=== PATIENT | male | born 1930 | race Caucasian/White ===

== ENCOUNTER → 2018-04-07 | Outpatient (CLI) | payer MEDICARE, OTHER ==
[~2018-04-07] MED LIST: ALLO300; ASPI81CH PO; ASPI81EC; CIPR500 PO; ENOXAPARIN; Flonase 0.05% N16 GM; HYDCHL12.5 PO; L-LYSINE; LAVAP17G PO; LEVFLO500 PO; MULTI VITAMIN1 EACH PO; MULVITMINF; NAPR500 PO; OMEGA-3; OXYACE5T PO; OXYB5ER PO; OXYGEN; PHENA200; Pyridium200 MG PO; RXOXYACE PO; TERA5 PO; TRIM100 PO; VERA120ERB; WARF3 PO; WARF5 PO; WARF7.5 PO; [UNRECOGNIZED DRUG - OTHER]
== END | disposition home or self-care (01) ==
LOC: LAB EV 18:31 → LAB SHORT 18:31
DX: R30.0 Dysuria (principal)
CPT/HCPCS: 87086

== ENCOUNTER → 2018-06-15 | Outpatient (CLI) | payer MEDICARE, OTHER | END | disposition home or self-care (01) | LOC: PLD 13:42 → LAB SHORT 13:42 | DX: D48.5 Neoplasm of uncertain behavior of skin (principal) | CPT/HCPCS: 88305 ==

== ENCOUNTER → 2018-09-21 | Outpatient (CLI) | payer MEDICARE, OTHER ==
[2018-09-21 11:21] LABS: Bilirubin, Urine Neg (Neg); Blood, Urine 5+ (Neg); Glucose Qualitative, Urine Neg (Neg); Ketones, Urine Neg (Neg); Leukocyte Esterase, Urine 1+ (Neg); Nitrite, Urine Neg (Neg); Protein, Urine 2+ (Neg); Urobilinogen, Urine NORM (Normal)
[2018-09-21 11:53] LABS: Appearance, Urine Hazy (Clear); Color, Urine Yellow (P-Yellow)
[2018-09-21 11:57] LABS: Red Blood Cells, Urine 25-50 /hpf (0-2)
[2018-09-21 11:58] LABS: Bacteria Few /hpf; Squamous Epithelial Cells Few /hpf (Few)
== END | disposition home or self-care (01) ==
LOC: LAB SHORT 09:45 → LAB 09:45
PROVIDERS: Internal Medicine
DX: N39.0 Urinary tract infection, site not specified (principal)
CPT/HCPCS: 81001; 87086

== ENCOUNTER → 2019-01-01 | Outpatient (CLI) | payer MEDICARE, OTHER | END | disposition home or self-care (01) | LOC: LAB SHORT 13:52 → PLD 13:52 | DX: L57.0 Actinic keratosis (principal) | CPT/HCPCS: 88305 ==

== ENCOUNTER → 2019-03-22 | Outpatient (CLI) | payer MEDICARE, OTHER ==
[~2019-03-22] MED LIST changes: +ACET325 PO; +Anti-Diarrheal2 MG PO; +BISA10S PR; +CIPR250 PO; +DONEPEZIL HCL10 MG PO; +GAVILAX17 GM PO; +Milk Of Ma400 MG/5 M PO; +OLANZAPINE5 MG PO; +TUMS500 MG PO; +ZYRTEC10 M1 PO
[2019-03-23 12:35] LABS: Bilirubin, Urine Neg (Neg); Blood, Urine 2+ (Neg); Glucose Qualitative, Urine Neg (Neg); Ketones, Urine Neg (Neg); Leukocyte Esterase, Urine Neg (Neg); Nitrite, Urine Neg (Neg); Protein, Urine 2+ (Neg); Specific Gravity, Urine 1.015 (1.003-1.022); Urobilinogen, Urine NORM (Normal)
[2019-03-23 12:53] LABS: Color, Urine Yellow (P-Yellow)
[2019-03-23 12:54] LABS: Appearance, Urine Clear (Clear)
[2019-03-23 12:55] LABS: Bacteria Few /hpf; Squamous Epithelial Cells Rare /hpf (Few)
== END ==
LOC: LAB SHORT 17:10 → LAB 17:10
PROVIDERS: Internal Medicine
DX: N39.0 Urinary tract infection, site not specified (principal)
CPT/HCPCS: 81001

== ENCOUNTER → 2019-06-15 | Outpatient (CLI) | payer MEDICARE, OTHER ==
[2019-06-15 15:03] LABS: Bilirubin, Urine Neg (Neg); Blood, Urine 5+ (Neg); Glucose Qualitative, Urine Neg (Neg); Ketones, Urine Neg (Neg); Leukocyte Esterase, Urine 1+ (Neg); Nitrite, Urine Neg (Neg); Protein, Urine 2+ (Neg); Specific Gravity, Urine 1.015 (1.003-1.022); Urobilinogen, Urine NORM (Normal)
[2019-06-15 15:11] LABS: Appearance, Urine Clear (Clear); Color, Urine Yellow (P-Yellow)
[2019-06-15 15:12] LABS: Bacteria Many /hpf; Red Blood Cells, Urine 25-50 /hpf (0-2); Squamous Epithelial Cells Rare /hpf (Few)
== END ==
LOC: LAB SHORT 14:56 → LAB 14:56
PROVIDERS: Internal Medicine
DX: N39.0 Urinary tract infection, site not specified (principal)
CPT/HCPCS: 81001; 87077; 87086; 87186

== ENCOUNTER 2019-06-18 08:45 | Emergency (ER) | payer MEDICARE, OTHER ==
[~2019-06-18] VITALS: Ht 175.3 cm; Wt 79.4 kg
[~2019-06-18 08:45] MED LIST changes: -ACET325 PO; -Anti-Diarrheal2 MG PO; -BISA10S PR; -CIPR250 PO; -DONEPEZIL HCL10 MG PO; -GAVILAX17 GM PO; -Milk Of Ma400 MG/5 M PO; -OLANZAPINE5 MG PO; -TUMS500 MG PO; -ZYRTEC10 M1 PO
[2019-06-18] MEDS ORDERED: ZYRTEC10 M1 PO (09:19)
[2019-06-18] MEDS ORDERED: CIPR250 PO (09:20)
[2019-06-18] MEDS ORDERED: DONEPEZIL HCL10 MG PO (09:20)
[2019-06-18] MEDS ORDERED: Flonase 0.05% N16 GM (09:21)
[2019-06-18] MEDS ORDERED: OLANZAPINE5 MG PO (09:21)
[2019-06-18] MEDS ORDERED: ACET325 PO (09:22)
[2019-06-18] MEDS ORDERED: TUMS500 MG PO (09:22)
[2019-06-18] MEDS ORDERED: BISA10S PR (09:22)
[2019-06-18] MEDS ORDERED: Milk Of Ma400 MG/5 M PO (09:23)
[2019-06-18] MEDS ORDERED: Anti-Diarrheal2 MG PO (09:23)
[2019-06-18] MEDS ORDERED: GAVILAX17 GM PO (09:24)
== END 2019-06-18 10:20 | disposition home or self-care (01) ==
LOC: ER 08:45
DX: N39.0 Urinary tract infection, site not specified (principal); F03.90 Unspecified dementia, unspecified severity, without behavioral disturbance, psychotic disturbance, mood disturbance, and anxiety; R41.82 Altered mental status, unspecified; I10 Essential (primary) hypertension
CPT/HCPCS: 99284

== ENCOUNTER → 2019-06-27 | Outpatient (CLI) | payer MEDICARE, OTHER ==
[~2019-06-27] MED LIST changes: +ACET325 PO; +Anti-Diarrheal2 MG PO; +BISA10S PR; +CIPR250 PO; +DONEPEZIL HCL10 MG PO; +GAVILAX17 GM PO; +Milk Of Ma400 MG/5 M PO; +OLANZAPINE5 MG PO; +TUMS500 MG PO; +ZYRTEC10 M1 PO
[2019-06-28 11:25] LABS: Source, Urine Clean Catch
[2019-06-28 12:11] LABS: Bilirubin, Urine Neg (Neg); Blood, Urine 5+ (Neg); Glucose Qualitative, Urine Neg (Neg); Ketones, Urine Neg (Neg); Leukocyte Esterase, Urine 2+ (Neg); Nitrite, Urine Neg (Neg); Protein, Urine 2+ (Neg); Specific Gravity, Urine 1.015 (1.003-1.022); Urobilinogen, Urine NORM (Normal)
[2019-06-28 12:19] LABS: Appearance, Urine Clear (Clear); Color, Urine Yellow (P-Yellow)
[2019-06-28 12:21] LABS: Red Blood Cells, Urine 25-50 /hpf (0-2)
[2019-06-28 12:22] LABS: Squamous Epithelial Cells Rare /hpf (Few)
[2019-06-28 12:23] LABS: Bacteria Few /hpf
== END | disposition home or self-care (01) ==
LOC: LAB SHORT 17:15 → LAB 17:15
PROVIDERS: Internal Medicine
DX: N39.0 Urinary tract infection, site not specified (principal)
CPT/HCPCS: 81001; 87086

== ENCOUNTER 2019-10-14 00:20 | Emergency (ER) | payer MEDICARE, OTHER ==
[~2019-10-14] VITALS: Ht 177.8 cm; Wt 99.8 kg
[2019-10-14 00:54] LABS: BASOPHILS ABSOLUTE AUTO 0.02 K/mm3 (0.00-0.23); BASOPHILS PERCENT AUTO 0 % (0-2); EOSINOPHILS PERCENT AUTO 4 % (0-6); Hematocrit 42.8 % (37.0-53.0); Hemoglobin 13.4 g/dL (13.5-17.5); IMMATURE GRAN ABSOLUTE AUTO 0.02 K/mm3 (0.00-0.10); IMMATURE GRAN PERCENT AUTO 0 % (0-1); LYMPHOCYTES ABSOLUTE AUTO 2.23 K/mm3 (0.84-5.20); LYMPHOCYTES PERCENT AUTO 32 % (21-46); MONOCYTES ABSOLUTE AUTO 0.87 K/mm3 (0.16-1.47); MONOCYTES PERCENT AUTO 13 % (4-13); Mean Corpuscular HGB Conc 31.3 g/dL (31.5-36.5); Mean Corpuscular Volume 93 fL (80-100); Mean Platelet Volume 9.5 fL (9.1-12.4); NEUTROPHILS ABSOLUTE AUTO 3.51 K/mm3 (1.96-9.15); NEUTROPHILS PERCENT AUTO 51 % (41-73); Platelet Count 235 K/mm3 (150-400); RDW Coefficient Variation 12.9 % (11.7-14.2); RDW Standard Deviation 44.4 fL (35.1-46.3); Red Blood Cell Count 4.62 M/mm3 (4.30-5.90); White Blood Cell Count 6.95 K/mm3 (4.00-11.30)
[2019-10-14 01:14] LABS: Alanine Aminotransfer (ALT/SGP 28 U/L (12-78); Albumin, Blood 3.1 g/dL (3.4-5.0); Albumin/Globulin Ratio 0.9 (0.8-1.8); Alk Phos 91 U/L (50-136); Anion Gap 5 mmol/L (6-16); Aspartate Aminotrans (AST/SGOT 16 U/L (12-37); Bilirubin, Total 0.2 mg/dL (0.1-1.0); Blood Urea Nitrogen 19 mg/dL (8-24); CO2, Blood 28 mmol/L (21-32); Calcium, Blood 8.1 mg/dL (8.5-10.1); Chloride, Blood 108 mmol/L (98-108); Creatinine, Blood 1.19 mg/dL (0.60-1.20); Globulin, Blood 3.6 g/dL (2.2-4.0); Glomerular Filtration Rate >60 (60-); Glucose, Blood 100 mg/dL (70-99); Potassium, Blood 4.3 mmol/L (3.5-5.5); Sodium, Blood 141 mmol/L (136-145); Total Protein, Blood 6.7 g/dL (6.4-8.2); Troponin I <0.015 ng/mL (0.000-0.040)
== END 2019-10-14 02:13 | disposition home or self-care (01) ==
LOC: ER 00:20
PROVIDERS: Emergency Medicine
DX: R07.9 Chest pain, unspecified (principal); I10 Essential (primary) hypertension; Z79.899 Other long term (current) drug therapy; Z88.0 Allergy status to penicillin
CPT/HCPCS: 36415; 71045; 80053; 84484; 85025; 93005; 93010; 99284-25

== ENCOUNTER → 2019-11-28 | Outpatient (CLI) | payer MEDICARE, OTHER ==
[2019-11-29 16:29] LABS: Bilirubin, Urine Neg (Neg); Blood, Urine 1+ (Neg); Glucose Qualitative, Urine Neg (Neg); Ketones, Urine Neg (Neg); Leukocyte Esterase, Urine Neg (Neg); Nitrite, Urine Neg (Neg); Protein, Urine Neg (Neg); Urobilinogen, Urine NORM (Normal); pH, Urine 6.5 (5.0-8.0)
[2019-11-29 16:45] LABS: Appearance, Urine Clear (Clear); Color, Urine Yellow (P-Yellow)
[2019-11-29 16:46] LABS: White Blood Cells, Urine 0-2 /hpf (0-5)
[2019-11-29 16:47] LABS: Bacteria Few /hpf; Squamous Epithelial Cells Not Seen /hpf (Few)
== END | disposition home or self-care (01) ==
LOC: LAB 13:49 → LAB SHORT 13:49
PROVIDERS: Internal Medicine
DX: N39.0 Urinary tract infection, site not specified (principal)
CPT/HCPCS: 81001

== ENCOUNTER 2019-12-16 22:34 | Emergency (ER) | payer MEDICARE, OTHER ==
[~2019-12-16] VITALS: Ht 182.9 cm; Wt 81.7 kg
== END 2019-12-17 00:01 | disposition home or self-care (01) ==
LOC: ER 22:34
DX: S09.90XA Unspecified injury of head, initial encounter (principal); I12.9 Hypertensive chronic kidney disease with stage 1 through stage 4 chronic kidney disease, or unspecified chronic kidney disease; N18.3 Chronic kidney disease, stage 3 (moderate); K21.9 Gastro-esophageal reflux disease without esophagitis; F03.90 Unspecified dementia, unspecified severity, without behavioral disturbance, psychotic disturbance, mood disturbance, and anxiety; Z88.0 Allergy status to penicillin; Z79.899 Other long term (current) drug therapy; W18.30XA Fall on same level, unspecified, initial encounter
CPT/HCPCS: 70450; 72125; 99284-25

== ENCOUNTER → 2020-01-20 | Outpatient (CLI) | payer MEDICARE, OTHER ==
[2020-01-20 12:36] LABS: Albumin, Blood 3.6 g/dL (3.4-5.0); Anion Gap 5 mmol/L (6-16); Blood Urea Nitrogen 23 mg/dL (8-24); Bun/Creatinine Ratio 18.5 (12.0-20.0); CO2, Blood 28 mmol/L (21-32); Calcium, Blood 8.8 mg/dL (8.5-10.1); Chloride, Blood 105 mmol/L (98-108); Creatinine, Blood 1.24 mg/dL (0.60-1.20); Glomerular Filtration Rate 58 (60-); Glucose, Blood 87 mg/dL (70-99); Phosphorus, Blood 3.7 mg/dL (2.5-4.9); Potassium, Blood 4.4 mmol/L (3.5-5.5); Sodium, Blood 138 mmol/L (136-145)
== END | disposition home or self-care (01) ==
LOC: LAB 09:18 → LAB SHORT 09:18
PROVIDERS: Internal Medicine
DX: N17.9 Acute kidney failure, unspecified (principal); R60.0 Localized edema
CPT/HCPCS: 80069

== ENCOUNTER 2020-02-26 16:38 | Emergency (ER) | payer MEDICARE, OTHER ==
[~2020-02-26] VITALS: Ht 172.7 cm; Wt 97.5 kg
== END 2020-02-26 19:34 | disposition home or self-care (01) ==
LOC: ER 16:38
DX: S00.81XA Abrasion of other part of head, initial encounter (principal); F03.90 Unspecified dementia, unspecified severity, without behavioral disturbance, psychotic disturbance, mood disturbance, and anxiety; Z88.0 Allergy status to penicillin; Z88.8 Allergy status to other drugs, medicaments and biological substances; Z79.899 Other long term (current) drug therapy; Z79.82 Long term (current) use of aspirin; I10 Essential (primary) hypertension; Z86.711 Personal history of pulmonary embolism; W18.30XA Fall on same level, unspecified, initial encounter
CPT/HCPCS: 70450; 90471; 90714; 93005; 93010; 99285-25

== ENCOUNTER → 2020-03-05 | Outpatient (CLI) | payer MEDICARE, OTHER ==
[2020-03-06 16:33] LABS: Appearance, Urine Clear (Clear); Bilirubin, Urine Neg (Neg); Blood, Urine 1+ (Neg); Color, Urine Pale Yellow (P-Yellow); Glucose Qualitative, Urine Neg (Neg); Ketones, Urine Neg (Neg); Leukocyte Esterase, Urine Neg (Neg); Nitrite, Urine Neg (Neg); Protein, Urine 1+ (Neg); Urobilinogen, Urine NORM (Normal)
[2020-03-06 16:36] LABS: Bacteria Not Seen /hpf; Red Blood Cells, Urine Not Seen /hpf (0-2); Squamous Epithelial Cells Not Seen /hpf (Few); White Blood Cells, Urine Not Seen /hpf (0-5)
== END ==
LOC: LAB 08:00 → LAB SHORT 08:00
PROVIDERS: Internal Medicine
DX: N39.0 Urinary tract infection, site not specified (principal)
CPT/HCPCS: 81001

== ENCOUNTER 2020-03-12 10:23 | Emergency (ER) | payer MEDICARE, OTHER ==
[~2020-03-12] VITALS: Ht 172.7 cm; Wt 90.7 kg
[2020-03-12] MEDS ORDERED: Citalopram HBr20 MG PO (10:43)
[2020-03-12] MEDS ORDERED: MELA3 PO (10:46)
[2020-03-12] MEDS ORDERED: FUROSEMIDE20 MG PO (10:46)
[2020-03-12] MEDS ORDERED: Klor-Con 1010 MEQ PO (10:48)
[2020-03-12] MEDS ORDERED: TRAZ100 PO (10:49)
[2020-03-12] MEDS ORDERED: TOPI25C PO (10:49)
[2020-03-12 12:22] LABS: Source, Urine Catheter
[2020-03-12 12:34] LABS: Appearance, Urine Clear (Clear); Bilirubin, Urine Neg (Neg); Blood, Urine 5+ (Neg); Color, Urine Yellow (P-Yellow); Glucose Qualitative, Urine Neg (Neg); Ketones, Urine Neg (Neg); Leukocyte Esterase, Urine 3+ (Neg); Nitrite, Urine Neg (Neg); Protein, Urine 2+ (Neg); Urobilinogen, Urine NORM (Normal); pH, Urine 6.5 (5.0-8.0)
[2020-03-12 12:49] LABS: Bacteria Mod /hpf; Squamous Epithelial Cells Rare /hpf (Few)
[2020-03-12] MEDS ORDERED: CEFP200 PO (13:04)
== END 2020-03-12 13:51 | disposition home or self-care (01) ==
LOC: ER 10:23
PROVIDERS: Physician Assistant
DX: N39.0 Urinary tract infection, site not specified (principal); Z88.0 Allergy status to penicillin; Z88.8 Allergy status to other drugs, medicaments and biological substances; Z79.899 Other long term (current) drug therapy; Z79.82 Long term (current) use of aspirin; I12.9 Hypertensive chronic kidney disease with stage 1 through stage 4 chronic kidney disease, or unspecified chronic kidney disease; N18.3 Chronic kidney disease, stage 3 (moderate); F03.90 Unspecified dementia, unspecified severity, without behavioral disturbance, psychotic disturbance, mood disturbance, and anxiety; N40.0 Benign prostatic hyperplasia without lower urinary tract symptoms; K21.9 Gastro-esophageal reflux disease without esophagitis; Z86.718 Personal history of other venous thrombosis and embolism; Z86.711 Personal history of pulmonary embolism
CPT/HCPCS: 81001; 87086; 99285; A9270-GY